=== PATIENT | female | born 1995 | race Hispanic/Latino ===

== ENCOUNTER 2019-11-22 08:25 | Observation (INO) | payer BC ==
[2019-11-21 14:45] LABS: BASOPHILS % (AUTO) 0.4 % (0.0-5.0); EOSINOPHILS % (AUTO) 0.2 % (0.0-8.0); HEMATOCRIT 37.7 % (36-48); LYMPHOCYTES % (AUTO) 31.8 % (21.0-51.0); MEAN CORPUSCULAR HEMOGLOBIN 31.4 pg (27.0-33.0); MEAN CORPUSCULAR HGB CONC 32.6 g/dL (32.0-36.0); MEAN CORPUSCULAR VOLUME 96.2 fL (79-99); MONOCYTES % (AUTO) 7.5 % (3.0-13.0); NEUTROPHILS % (AUTO) 59.9 % (40.0-77.0); PLATELET COUNT (AUTO) 194 K/uL (130-400); RED BLOOD CELL COUNT(AUTO) 3.92 MIL/uL (4.00-5.50); RED CELL DISTRIBUTION WIDTH 11.4 % (11.0-15.5); WHITE BLOOD COUNT (AUTO) 5.2 K/uL (4.8-10.8)
[2019-11-21 15:19] VITALS: BP 105/57
[2019-11-22] VITALS (23 sets, daily range): BP systolic 84–119; BP diastolic 50–69
[~2019-11-22] VITALS: Ht 165.1 cm; Wt 55.7 kg
[~2019-11-22 08:25] MED LIST: BIRTH CONTROL PATCH TP
[2019-11-22] MEDS ORDERED: CALDOLOR 800MG+NS 250ML 250 ML IV ONE (08:59)
[2019-11-22] MEDS ORDERED: LACTATED RINGERS 1000ML 1,000 ML IV ONE (09:09)
[2019-11-22] MEDS ORDERED: ESTR10TA4 VG (09:29)
[2019-11-22] MEDS ORDERED: NORE1PAT7 TD (09:29)
[2019-11-22] MEDS ORDERED: DEXAMETHASONE SOD PHOSPHATE 10MG/ML 1ML VIAL ONE ×2 (09:56→10:58)
[2019-11-22] MEDS ORDERED: LIDOCAINE PF 2% 5ML ABBOJECT ONE (09:56)
[2019-11-22] MEDS ORDERED: ONDANSETRON HCL 4 MG/2 ML VIAL ONE (09:57)
[2019-11-22] MEDS ORDERED: FENTANYL CITRATE PF 50 MCG/1 ML 2ML VIAL ONE ×3 (09:57→11:03)
[2019-11-22] MEDS ORDERED: ROCURONIUM 10MG/1ML SYR 10 MG/ML ML ONE (09:57)
[2019-11-22] MEDS ORDERED: GLYCOPYRROLATE 1 MG/5 ML SYRINGE ONE (09:57)
[2019-11-22] MEDS ORDERED: NEOSTIGMINE 5MG/5ML SYR IV ONE (09:57)
[2019-11-22] MEDS ORDERED: MIDAZOLAM HCL 1 MG/ML 2ML VIAL ONE (09:57)
[2019-11-22] MEDS ORDERED: PROPOFOL 10 MG/ML 20ML VIAL IV ONE (09:57)
[2019-11-22] MEDS ORDERED: CEFAZOLIN SODIUM 1 GM VIAL ONE (11:09)
[2019-11-22] MEDS ORDERED: BUPIVACAINE/PF 0.25% 30ML VIAL IJ ONE (11:40)
[2019-11-22] MEDS ORDERED: ACETAMINOPHEN EXTRA STRENGTH 500 MG TABLET PO PRN (12:15)
[2019-11-22] MEDS ORDERED: PROMETHAZINE HCL 25 MG/ML 1ML AMPULE IM PRN ×2 (12:15)
[2019-11-22] MEDS ORDERED: BISACODYL 10 MG SUPP.RECT RC PRN (12:15)
[2019-11-22] MEDS ORDERED: MEPERIDINE-PF 75 MG/ML SYG IM PRN (12:15)
[2019-11-22] MEDS ORDERED: DOCUSATE SODIUM 100 MG CAP PO PRN (12:15)
[2019-11-22] MEDS ORDERED: MEPERIDINE-PF 25 MG/ML SYG ONE ×2 (12:24→12:33)
[2019-11-22] MEDS: CEFAZOLIN SODIUM 1 GM VIAL IVP SCH ×2 (13:37→22:43)
[2019-11-22] MEDS: DEXTROSE 5 %-0.45 % NACL 1,000 ML IV PRN ×2 (13:38→19:53)
[2019-11-22] MEDS: ACETAMINOPHEN-CODEINE 300/30MG TAB PO PRN ×3 (13:38→21:15)
[2019-11-22] MEDS ORDERED: ESTRADIOL 10 MCG MISC SCH (19:00)
--- NOTE | 2019-11-22 19:50 | NUR ---
PATIENT ASSESSED AND NOTED PATIENT HAS XULANE PATCH TO RIGHT UPPER ARM AND STATES WAS PLACED ON WEDNESDAY. WAS ASKED ABOUT YUVAFEM WHICH IS SUPPOSED TO BE TWICE A WEEK VAGINALLY AND INDICATED HAS NOT USED IT THIS WEEK DUE TO SIDE EFFECTS SHE HAS BEEN HAVING AND DOES NOT WANT UNTIL SHE TALKS TO DR. BYNUM. STATES SHE WAS USING YUVAFEM TWICE A WEEK ON WEDNESDAY AND WEDNESDAYS. PATIENT'S POSITION WAS CHANGED FOR COMFORT AND HUNG HER CALDOLOR FOR C/O PAIN TO INCISIONAL SITE.
[2019-11-22] MEDS: CALDOLOR 800MG+NS 250ML 250 ML IV SCH (21:13)
[2019-11-22] MEDS: SIMETHICONE 80 MG TAB.CHEW PO PRN (21:20)
--- NOTE | 2019-11-22 21:30 | NUR ---
PATIENT RESTING AND DENIES PAIN. INDICATED THAT WARM PAD TO UPPER RIGHT SHOULD HELPED WITH PAIN TO SHOULDER. POSITION WAS CHANGED FOR COMFORT.
[2019-11-23] MEDS: CALDOLOR 800MG+NS 250ML 250 ML IV SCH (03:37)
[2019-11-23] MEDS: ACETAMINOPHEN-CODEINE 300/30MG TAB PO PRN (03:37)
[2019-11-23 04:03] VITALS: BP 101/53
[2019-11-23] MEDS: CEFAZOLIN SODIUM 1 GM VIAL IVP SCH ×2 (05:51→14:14)
[2019-11-23 06:50] LABS: HEMATOCRIT 34.8 % (36-48); MEAN CORPUSCULAR HEMOGLOBIN 31.5 pg (27.0-33.0); MEAN CORPUSCULAR HGB CONC 32.2 g/dL (32.0-36.0); MEAN CORPUSCULAR VOLUME 97.8 fL (79-99); RED BLOOD CELL COUNT(AUTO) 3.56 MIL/uL (4.00-5.50); RED CELL DISTRIBUTION WIDTH 11.3 % (11.0-15.5); WHITE BLOOD COUNT (AUTO) 13.3 K/uL (4.8-10.8)
[2019-11-23 07:11] VITALS: BP 84/53
[2019-11-23] MEDS: SIMETHICONE 80 MG TAB.CHEW PO PRN (09:08)
--- NOTE | 2019-11-23 10:00 | NUR ---
PATIENT AMBULATING IN HALLWAY. NO DIZZINESS REPORTED. STEADY GAIT NOTED.
[2019-11-23 10:45] VITALS: BP 90/50
[2019-11-23] MEDS: DEXTROSE 5 %-0.45 % NACL 1,000 ML IV PRN (11:08)
[2019-11-23] MEDS ORDERED: IBUPROFEN 800 MG TAB PO SCH (12:15)
--- NOTE | 2019-11-23 14:14 | NUR ---
PATIENT STATES SHE WAS ABLE TO PASS FLATUS AND ABLE TO HOLD DOWN LUNCH. PATIENT BECAME NAUSEOUS ANCEF WAS BEING ADMINISTERED, NO EMESIS NOTED. PATIENT STATES NAUSEA "PASSED QUICKLY" Addendum: 11/23/19 at 1526 by RENETTA ROMERO, REKHA DA SILVA PHERGAN OFFERED, PATIENT DECLINED NEED FOR MEDICATION.
--- NOTE | 2019-11-23 15:15 | NUR ---
PATIENT RESTING LEFT LATERAL POSITION WITH EYES CLOSED. CHEST RISING AND FALLING IN NORMAL PATTERN. LIGHTS DIMMED. NO DISTRESS NOTED.
--- NOTE | 2019-11-23 16:00 | NUR ---
PATIENT REPORTS BOWL MOVEMENT. Addendum: 11/23/19 at 1749 by RENETTA ROMERO LVN LVN PATIENT REPORTS BOWEL MOVEMENT.
[2019-11-23 16:04] VITALS: BP 98/62
[2019-11-23] MEDS ORDERED: DOCU240C80 PO (16:16)
[2019-11-23] MEDS ORDERED: ACET1TAB12 PO (16:16)
[2019-11-23] MEDS ORDERED: IBUP-2077 PO (16:16)
--- NOTE | 2019-11-23 16:25 | NUR ---
verbal and written discharge instructions given, informed of the follow up appointment, prescription given. all questions answered. informed to call the doctor for future concerns. pt voiced understanding to all things discussed. Addendum: 11/23/19 at 1645 by ROBERT MARTINES RN Amended: Links added.
--- NOTE | 2019-11-23 17:45 | NUR ---
PATIENT LEFT UNIT VIA WHEELCHAIR WITH BELONGINGS IN HAND. PERSONAL VEHICLE USED FOR TRANSPORTATION. NO COMPLAINTS FROM PATIENT ON DISCHARGE.
[2019-11-29] MEDS ORDERED: ETHIN ESTRADIOL TP SCH (09:00)
[2019-11-29] MEDS ORDERED: NORELGESTROMIN TP SCH (09:00)
== END 2019-11-23 17:45 | disposition home or self-care (01) ==
LOC: DAH 08:25 → WSH 13:15 → DAH 18:41
DX: R19.00 Intra-abdominal and pelvic swelling, mass and lump, unspecified site (principal); K66.0 Peritoneal adhesions (postprocedural) (postinfection); N91.2 Amenorrhea, unspecified; N83.201 Unspecified ovarian cyst, right side
CPT/HCPCS: 36415 ×2; 58662; 84703; 85025; 85027; 86850; 86900; 86901; 96365; 96366 ×2; 96375; 96376 ×2; A4215 ×2; A4221; A4222; A4223; A4351; A4649; A4663; C1769 ×2; G0168; G0378 ×7; J0690 ×5; J1100 ×2; J1741 ×3; J2001; J2175 ×2; J2250; J2405; J2704; J2710; J3010 ×3; J3490 ×2; J7030 ×2; J7120